=== PATIENT | male | born 1955 ===

== ENCOUNTER → 2018-08-05 06:16 | Day surgery (SDC) | payer OTHER ==
--- NOTE | 2018-08-02 22:01 | HP ---
CC: Dr. Fred Fernandez, Cardiology; Dr. Edson Brian, [place], [place] * ADMISSION HISTORY AND PHYSICAL: DATE OF ADMISSION: 08/05/18 ATTENDING SURGEON: Dr. Lobo Mcmullen.* (DICTATED BY JACLYN BRANNON) CHIEF COMPLAINT: Left inguinal hernia. HISTORY OF PRESENT ILLNESS: This is a 62-year-old, soon to be 63-year-old -[place] male who has had a left groin bulge for at least the past year. It has gradually gotten larger but has been relatively asymptomatic. 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 He was seen in the office by Dr. Mcmullen on 06/08/18, at which time examination confirmed the presence of large fist-sized left inguinal hernia, which was reducible in the supine position. It was relatively nontender. There was no obvious right inguinal hernia. Dr. Mcmullen discussed with him the indications for repair, the risks, benefits and alternatives as well as the possible approaches. The patient was referred for further Cardiology evaluation and was seen by Dr. Fernandez with workup including EKG, echocardiogram and nuclear stress test. He has been managed medically and was felt to be low to intermediate risk to proceed with hernia surgery (see attached). PAST MEDICAL HISTORY: Hypertension, asthma, nephrolithiasis, hyperuricemia, elevated PSA. He underwent ESWL in 2007 for nephrolithiasis. He has had some dental extractions. He has not had any problems related to anesthesia or bleeding. He was noted by Dr. Fernandez's evaluation to a have probable prior infarction; see separate report. CURRENT MEDICATIONS: 1. Zyloprim 100 mg 2 tablets once daily. 2. Chlorthalidone 25 mg once daily. 3. Albuterol extended release 4 mg, 2 tablets 1-2 times daily p.r.n. for asthma. 4. Symbicort 160/4.5 1 inhalation b.i.d. 5. Aspirin 81 mg once daily. 6. Toprol 25 mg XL once daily. 7. Lipitor 40 mg daily. 8. He also takes vitamin E and multivitamin supplements. ALLERGIES: None known. FAMILY HISTORY: Negative for anesthesia problems, bleeding or clotting disorders. SOCIAL HISTORY: The patient is single. He lives in [place], but has come up here to undergo his surgical intervention. He is currently living with his brother who accompanies him at today's visit. 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 He denies use of tobacco. He drinks on average 1-2 drinks per week. He denies any other recreational drug use. REVIEW OF SYSTEMS: General: No recent constitutional symptoms or acute illnesses other than noted in the HPI. HEENT: No acute or new problems reported. Cardiovascular: No chest pain or palpitations. See also attached from Dr. Fernandez. Respiratory: No recent exacerbations of his asthma. His albuterol inhaler was discontinued though he still does take oral albuterol. GI : No problems reported. He has never had a colonoscopy for screening purposes. I advised that he discuss this further with his PCP regarding colorectal cancer screening. : He apparently has an elevated PSA, but has not been investigated further. He will likewise discuss this with his PCP for possible Urology referral. Endocrine: No diabetes or thyroid dysfunction. PHYSICAL EXAMINATION GENERAL: Well-nourished, well-developed -[place] male, in no acute distress. VITAL SIGNS: Height 5 feet and 6 inches, weight 181 pounds, blood pressure 150/ 90, pulse 84, respirations 18, temperature 98.6. HEENT: Pupils are equal, round, and reactive. EOMs intact. No conjunctival pallor. Oropharynx: Teeth in good repair. No intraoral lesions. Many missing teeth. NECK: No lymphadenopathy, thyromegaly, or masses. LUNGS: Clear to auscultation. No wheezes. HEART: Regular rate and rhythm. No murmur appreciated. ABDOMEN: Soft, nontender to palpation. No masses or organomegaly. Other than the left groin mass, as mentioned per Dr. Mcmullen's exam, consistent with left inguinal hernia. GENITALIA: Not done. RECTAL: Not done. BACK: No spinous process or CVA tenderness. EXTREMITIES: No edema. NEUROLOGIC: Grossly intact. SKIN: Warm and dry. No suspicious rashes or lesions noted. IMPRESSION: Left inguinal hernia. PLAN: Open repair left inguinal hernia with mesh. JACLYN BRANNON [id number]/[facility] #: [id number] [facility]NING HOSPITALSage
[~2018-08-05 06:16] MED LIST: Buffered Lidocaine 1% SYRIN* 1 ML/SYRINGE INTRADERM ONE; Bupivacaine 0.5% W/EPI SDV* 30 ML VIAL ONE; EPHEDrine (Pressors)* 50 MG/ML VIAL ONE; Ketorolac INJ* 30 MG/ML 1 ML VIAL IV PUSH SCH; Ketorolac INJ* 30 MG/ML 1 ML VIAL ONE; Lactated Ringers 1000 ML Bag* 1,000 ML IV SCH; Lidocaine 1% INJ* 10 MG/ML 30 ML SDV ONE; Lidocaine 2% PF * 5 ML VIAL ONE; Metoprolol Tartrate IV* 1 MG/ML 5 ML VIAL ONE; Midazolam* 1 MG/ML 2 ML VIAL (2 MG) ONE; NS 0.9% 500 ML* 500 ML IV ONE; Naloxone* 0.4 MG/ML 1 ML VIAL IV PRN; Ondansetron INJ* 2 MG/ML VIAL IV PRN; Ondansetron INJ* 2 MG/ML VIAL ONE; Propofol* 10 MG/ML 20 ML BTL ONE; Sodium Citrate/Citric Acid* 15 ML UDC ONE; Sodium Citrate/Citric Acid* 15 ML UDC PO ONE; ceFAZolin 2 GM PREMIX in ORs 2 GM/50 ML BAG IVPB ONE; fentaNYL* 50 MCG/ML 2 ML VIAL (100 MCG VIAL) ONE; hydrALAZINE IV* 20 MG/ML VIAL ONE; oxyCODONE/Acetamin 5/325 MG* TAB ONE
--- NOTE | 2018-08-05 10:18 | OP ---
Operative Report - Blank - Operative Report Date of Operation: 08/05/18 Note: Brief Operative Note Preop Dx: Left inguinal hernia Postop Dx: Same Procedure: Open inguinal hernia repair with mesh Anesthesia: GET Surgeon: Kemi [employer]ical Instruments Assembler: Marita ANAYA Fluids: 900 ml LR EBL: 10 cc Specimen: none Drains: none Findings: dictated
[2018-08-05] MEDS: fentaNYL* 50 MCG/ML 2 ML VIAL (100 MCG VIAL) IV PRN ×3 (11:54→13:20)
--- NOTE | 2018-08-05 13:18 | OP ---
CC: Dr. Fernandez; Dr. James Brian, [place], [place] DATE OF OPERATION/DATE OF DICTATION: 08/05/2018. DATE OF : 1955. SURGEON: Lobo Mcmullen MD. 4 H YOUTH DEVELOPMENT SPECIALIST: JACLYN Mehta. ANESTHESIOLOGIST: Etienne Schofield DO. ANESTHESIA: General, local infiltration. PRE-OP DIAGNOSIS: Large left inguinal scrotal hernia. POST-OP DIAGNOSIS: Large left inguinal scrotal hernia. OPERATIVE PROCEDURE: Open repair of large left inguinal scrotal hernia with mesh. DESCRIPTION OF PROCEDURE: The patient was supine on the operating room table. After adequate general anesthetic, compression stockings, Gianna Hugger warmer, and intravenous antibiotics, local anesthetic was administered. An approximately 8 cm incision was created. The hernia was approximately the siz e of my fist and ultimately I was able to dissect it free from the cord structures and to reduce it. The inguinal ring was about 5 cm across, so a large cone mesh plug was created and sutured there usin g 2-0 Vicryl. A second piece of mesh was placed over the inguinal floor and sutured at the tubercle. Tails were split, brought around the cord structures, and was tacked down laterally. It was also s utured to the inguinal ligament and to the transverse abdominis. The external oblique was closed ove r top with 2-0 Vicryl, Carlitos's with 3-0 Vicryl, skin with 4-0 Prolene, followed by a sterile dressin g. He tolerated the procedure well, was awakened and brought to recovery in good condition. No comp lications. No drains. No pathologic specimen. Sponge and instrument counts correct. ESTIMATED BLOOD LOSS: 20 ml. [id number]/[facility] #: [id number]
[2018-08-05 17:52] VITALS: BP 127/84
--- NOTE | 2018-08-05 20:04 | CONS ---
CONSULTATION NOTE: DATE OF CONSULT: 08/05/18 CHIEF COMPLAINT: Postoperative hypotension. HISTORY OF PRESENT ILLNESS: The patient is a 62-year-old -[place] African gentleman with history of hypertension and asthma, who has had a left inguinal hernia repair done a few hours before. He was b rought to PACU postop and was noted to be hypotensive at 88/60. He was bolused with only 250 cc of I V fluids with 5 mg x1 of ephedrine and his blood pressure has since been normal at 126/71 for the las t 3 or 4 hours. I saw him in the PACU and he is well oriented, appears well and responds appropriate ly to my questions. PAST MEDICAL AND SURGICAL HISTORY: Hypertension, asthma, nephrolithiasis, hyperuricemia, elevated PS A, status post ESWL in 2007 for nephrolithiasis, status post the dental extraction. He was noted not to have any problems related to anesthesia or bleeding. He was noted by Dr. Fernandez's evaluation to christina loera probable prior infarction. HOME MEDICATIONS: 1. Zyloprim. 2. Chlorthalidone. 3. Albuterol. 4. Symbicort. 5. Aspirin. 6. Toprol. 7. Lipitor. ALLERGIES: None known. FAMILY HISTORY: Negative for anesthesia problems, bleeding or clotting disorders. SOCIAL HISTORY: He is single. He lives in [place], currently living with his brother who accompa nies him at today's visit and is currently at bedside. 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 He denies any use of tobacco. Drinks on average 1 to 2 drinks per week. Denies any other recr eational drug use. REVIEW OF SYSTEMS: He denied any prodromal symptoms prior to, during or after the hypotensive event that was reported. More specifically, he denied any headaches, dizziness, fevers, chills, nausea, vo miting, chest pain, shortness of breath, increased coughing or sputum production, abdominal pain, shawn rrhea, constipation, pain and/or increased frequency in urination, myalgias, arthralgias, throat pain or new skin lesions. The rest of the 14-point review of systems other than the what was described a re otherwise unremarkable. PHYSICAL EXAMINATION: Shows the most recent vital signs of record blood pressure of 120/68, 97% satu ration on room air, 95 per minute heart rate, temperature of 99.1 degrees Fahrenheit. General Appear ance: The patient is awake, alert, and oriented x3, not in acute distress. HEENT: Normocephalic, a traumatic. PERRLA. Extraocular muscles intact. Negative for icterus. Moist oral mucosa. Negative throat erythema. Neck is soft, supple with no cervical lymphadenopathy, no JVD. Heart: S1, S2 withi n normal limits. Regular rate and rhythm. No murmurs, rubs, or gallops. Chest: Clear to auscultat ion bilaterally. Good air entry. No wheezes, rales, or rhonchi. Abdomen is soft, appropriately ten simi given postoperative site between suprapubic and umbilical area, has dressings. Extremities: No c yanosis, clubbing, or edema. Psychiatric: No active psychosis, depression, suicidal or homicidal id eation. Skin is warm to touch. ASSESSMENT AND PLAN: The patient is a 63-year-old -[place] gentleman with history of hyperte nsion and asthma, status post recent umbilical hernia repair, likely suffered a brief post-sedation h ypotension. Brief hypotension, responsive with IV fluids and onetime dose of ephedrine. The patient denies any p rodromal symptoms as well as any symptoms both during and after the event and hence likely due to pos t-sedation response. I have ordered an EKG as well as orthostatic vital signs and his chest x-ray pr ior to his planned discharge post-procedure. Again, the patient is asymptomatic and given above hist ory, it is likely due to post-sedation hypotension. If all three tests are normal, I will defer with surgery as to his disposition. [id number]/[facility] #: [id number]
== END | disposition home or self-care (01) ==
LOC: OR 06:16
PROVIDERS: ATTEND Surgery
DX: K40.90 Unilateral inguinal hernia, without obstruction or gangrene, not specified as recurrent (principal); I10 Essential (primary) hypertension; J45.909 Unspecified asthma, uncomplicated; I45.10 Unspecified right bundle-branch block; Z87.442 Personal history of urinary calculi
CPT/HCPCS: 71045; 93005; A9270-GY; C1781; J0360; J0690; J1885; J2250; J2405; J2704; J3010; J3490